=== PATIENT | female | born 1975 | race Caucasian/White ===

== ENCOUNTER 2016-08-03 12:11 | Emergency (ER) | payer SELFPAY ==
[2016-08-03 13:04] LABS: BASOPHIL# 0.1 X10e3 (0-0.3); BASOPHIL% 0.6 % (0-2.5); EOSINOPHIL# 0.2 X10e3 (0-0.7); EOSINOPHIL% 1.8 % (0.0-7.0); HEMATOCRIT 41.5 % (35.0-45.0); HEMOGLOBIN 13.5 gm/dL (12.0-16.0); LYMPHOCYTE# 2.5 X10e3 (1.0-3.5); LYMPHOCYTE% 25.2 % (17.0-45.0); MEAN CELL VOLUME 86.3 FL (83-96); MEAN CORPUSCULAR HGB CONC 32.5 g/dL (30-36); MEAN PLATELET VOLUME 7.7 FL (6.5-11.5); MONOCYTE# 0.5 X10e3 (0-1.0); MONOCYTE% 5.2 % (3.0-12.0); NEUTROPHIL# 6.6 X10e3 (1.5-7.1); NEUTROPHIL% 67.2 % (40-75); PLATELET COUNT 313 X10e3 (140-420); RED BLOOD COUNT 4.81 X10e (3.90-5.30); RED CELL DISTRIBUTION WIDTH 14.6 % (11.0-15.5); WHITE BLOOD COUNT 9.8 X10e3 (4.0-10.5)
[2016-08-03 13:07] LABS: DIFF IND NO
[2016-08-03 13:42] LABS: BLOOD UREA NITROGEN 10 mg/dL (9-23); CALCIUM SERUM 9.1 mg/dL (8.4-10.2); CARBON DIOXIDE 24 mmol/L (22-31); CHLORIDE 104 mmol/L (100-111); CREATININE SERUM 0.4 mg/dL (0.6-1.4); GLOM FILT RATE Estimated ABOVE60 mL/min (>60); GLUCOSE FASTING 79 mg/dL (70-110); SODIUM 138 mmol/L (135-145)
== END 2016-08-03 14:13 | disposition home or self-care (01) ==
LOC: CFTX 12:11
PROVIDERS: Nurse Practitioner
DX: K64.4 Residual hemorrhoidal skin tags (principal)
CPT/HCPCS: 36415; 80048; 84703; 85025; 99283